=== PATIENT | female | born 1955 | race Caucasian/White ===

== ENCOUNTER 2016-08-02 18:16 | Inpatient (IN) | payer OTHER ==
[~2016-08-02] VITALS: Ht 152.4 cm; Wt 67.4 kg
[2016-08-02 18:53] LABS: ADD MIUA? YES; BILIRUBIN NEGATIVE; BLOOD LARGE; GLUCOSE (STRIP) NEGATIVE; KETONES NEGATIVE; LEUKOCYTES MODERATE; NITRITE NEGATIVE; PROTEIN (STRIP) 100; SPECIFIC GRAVITY 1.008 (1.000-1.030); UROBILINOGEN 0.2 MG/DL (0.2-1.0)
[2016-08-02 19:10] LABS: EOSINOPHIL (%) 6.1 % (0-5); EOSINOPHIL COUNT 0.8 K/uL (0-0.3); HEMATOCRIT 34.9 % (36.0-46.0); IMMATURE GRANULOCYTE (%) 0.3 % (0.0-0.7); INSTRUMENT ABS NEUTROPHIL CT 6.7 K/uL; MCH 30.6 PG (29.0-34.0); MCHC 33.8 G/DL (30.0-36.0); MCV 90.6 FL (83-99); MEAN PLAT.VOLUME 9.1 uM^3 (9.5-12.4); MONOCYTE (%) 13.9 % (3-12); MONOCYTE COUNT 1.7 K/uL (0-0.8); NEUTROPHIL (%) 54.9 % (45-76); NEUTROPHIL COUNT 6.7 K/uL (1.8-6.4); PLATELET COUNT 443 K/uL (156-360); RBC DIS.WIDTH-CV 11.9 % (11.8-14.6); RBC DIS.WIDTH-SD 39.5 % (39-53); RED BLOOD COUNT 3.85 M/uL (3.80-5.20); WHITE BLOOD COUNT 12.2 K/uL (4.1-10.2)
[2016-08-02 19:14] LABS: BACTERIA NONE SEEN /HPF; CASTS NONE SEEN /LPF; CRYSTALS NONE SEEN; EPITHELIAL CELLS RARE /HPF; MUCUS NONE SEEN /LPF; RED BLOOD CELLS TNTC /HPF (0-5); WHITE BLOOD CELLS 0-5 /HPF (0-5)
[2016-08-02 19:18] LABS: CHLORIDE 104 mEq/L (99-109); POTASSIUM 3.5 mEq/L (3.7-5.4); SODIUM 137 mEq/L (136-147)
[2016-08-02 19:20] LABS: GLUCOSE 210 mg/dL (70-99)
[2016-08-02 19:21] LABS: ANION GAP 12 MEQ/L (2-14)
[2016-08-02 19:22] LABS: TOTAL BILIRUBIN 0.3 mg/dL (0.0-1.0)
[2016-08-02 19:23] LABS: ALKALINE PHOSPHATASE 88 IU/L (3-129)
[2016-08-02 19:24] LABS: GFR ESTIMATE (CALCULATED) 54 mL/min/
[2016-08-02 19:25] LABS: UREA NITROGEN (BUN) 18 mg/dL (9-23)
[2016-08-02 19:27] LABS: LIPASE > 1055 U/L (1.0-51.0)
[2016-08-02] MEDS ORDERED: METFORMIN HCL1000 MG PO ×2 (19:48→19:49)
[2016-08-02] MEDS ORDERED: GEMFIBROZIL600 MG PO (19:49)
[2016-08-02] MEDS ORDERED: LO-DOSE ASPIRIN81 M2 PO (19:49)
[2016-08-02] MEDS ORDERED: LISINOPRIL10 MG PO (19:49)
[2016-08-02] MEDS ORDERED: HYDROCHLOROTH12.5 M3 PO (19:49)
[2016-08-02] MEDS ORDERED: CINNAMON500 MG PO (19:49)
[2016-08-02] MEDS ORDERED: PRAVASTATIN SOD80 MG PO (19:49)
[2016-08-02 23:41] VITALS: BP 119/77
[2016-08-03 00:20] LABS: POINT-OF-CARE METER ID UU13113725
[2016-08-03 06:49] LABS: EOSINOPHIL (%) 7.5 % (0-5); EOSINOPHIL COUNT 0.7 K/uL (0-0.3); HEMATOCRIT 33.7 % (36.0-46.0); IMMATURE GRANULOCYTE (%) 0.3 % (0.0-0.7); INSTRUMENT ABS NEUTROPHIL CT 4.8 K/uL; LYMPHOCYTE COUNT 3.1 K/uL (1.0-2.8); MCH 30.2 PG (29.0-34.0); MCHC 32.3 G/DL (30.0-36.0); MCV 93.4 FL (83-99); MEAN PLAT.VOLUME 9.6 uM^3 (9.5-12.4); MONOCYTE (%) 12.3 % (3-12); MONOCYTE COUNT 1.2 K/uL (0-0.8); NEUTROPHIL COUNT 4.8 K/uL (1.8-6.4); PLATELET COUNT 384 K/uL (156-360); RBC DIS.WIDTH-CV 11.9 % (11.8-14.6); RBC DIS.WIDTH-SD 41.1 % (39-53); RED BLOOD COUNT 3.61 M/uL (3.80-5.20); WHITE BLOOD COUNT 9.9 K/uL (4.1-10.2)
[2016-08-03 06:50] LABS: POINT-OF-CARE METER ID UU13113725
[2016-08-03 07:03] VITALS: BP 123/76
[2016-08-03 07:08] LABS: ALKALINE PHOSPHATASE 72 IU/L (3-129); AMYLASE 21 IU/L (1-118); ANION GAP 9 MEQ/L (2-14); CHLORIDE 103 MEQ/L (99-109); GFR ESTIMATE (CALCULATED) > 59 mL/min/; GLUCOSE 136 mg/dL (70-99); LIPASE 37 U/L (1.0-51.0); SAMPLE HEMOLYSIS CHECK 2; SAMPLE ICTERIC CHECK 0; SAMPLE LIPEMIA CHECK 0; SODIUM 138 MEQ/L (136-147); TOTAL BILIRUBIN 0.5 MG/DL (0.0-1.0); TRIGLYCERIDES 208 MG/DL (Normal: <150); UREA NITROGEN (BUN) 12 mg/dL (9-23)
[2016-08-03 07:10] LABS: POTASSIUM 4.5 MEQ/L (3.7-5.4)
[2016-08-03 11:32] LABS: POINT-OF-CARE METER ID UU13113725
[2016-08-03 16:49] LABS: POINT-OF-CARE METER ID UU13113675
[2016-08-03 17:08] VITALS: BP 158/83
[2016-08-03 18:24] LABS: POINT-OF-CARE METER ID UU13113725
[2016-08-03 22:45] VITALS: BP 138/70
[2016-08-04 00:19] LABS: POINT-OF-CARE METER ID UU13113725
[2016-08-04 05:59] LABS: POINT-OF-CARE METER ID UU13113725
[2016-08-04 06:53] VITALS: BP 131/78
[2016-08-04 09:14] LABS: HEMATOCRIT 31.3 % (36.0-46.0); MCH 31.1 PG (29.0-34.0); MCHC 33.5 G/DL (30.0-36.0); MCV 92.6 FL (83-99); MEAN PLAT.VOLUME 9.4 uM^3 (9.5-12.4); PLATELET COUNT 400 K/uL (156-360); RBC DIS.WIDTH-CV 11.7 % (11.8-14.6); RBC DIS.WIDTH-SD 39.8 % (39-53); RED BLOOD COUNT 3.38 M/uL (3.80-5.20)
[2016-08-04 09:17] LABS: WHITE BLOOD COUNT 14.2 K/uL (4.1-10.2)
[2016-08-04 09:27] LABS: ANION GAP 10 MEQ/L (2-14); CHLORIDE 103 MEQ/L (99-109); GFR ESTIMATE (CALCULATED) > 59 mL/min/; POTASSIUM 3.8 MEQ/L (3.7-5.4); SAMPLE HEMOLYSIS CHECK 0; SAMPLE ICTERIC CHECK 0; SAMPLE LIPEMIA CHECK 0; SODIUM 138 MEQ/L (136-147); UREA NITROGEN (BUN) 11 mg/dL (9-23)
[2016-08-04 09:28] LABS: GLUCOSE 207 mg/dL (70-99)
[2016-08-04 11:55] LABS: POINT-OF-CARE METER ID UU13113725
[2016-08-04] MEDS ORDERED: CIPRO500 MG PO (12:37)
== END 2016-08-04 14:00 | disposition home or self-care (01) | DRG 668 ==
LOC: EME 18:16 → EDOF 20:09 → 5EAST 22:51
PROVIDERS: Hospitalist; Physician Assistant; Physician Assistant Medical
DX: N13.2 Hydronephrosis with renal and ureteral calculous obstruction (principal); K85.30 Drug induced acute pancreatitis without necrosis or infection; I10 Essential (primary) hypertension; E78.5 Hyperlipidemia, unspecified; N17.9 Acute kidney failure, unspecified; R91.1 Solitary pulmonary nodule; E11.65 Type 2 diabetes mellitus with hyperglycemia
CPT/HCPCS: 71250; 74000; 74176; 76770; 80048; 80053; 81003; 82150; 82365 90; 82948; 83690; 84478; 85025; 85027; 99281; 99285; C1758; C1769; C1876; C9113; J0692; J1170; J1650; J1815; J2405; J3010; J7030; J7050; J7120

== ENCOUNTER → 2016-08-27 | Outpatient (CLI) | payer OTHER ==
[~2016-08-27] VITALS: Ht 152.4 cm; Wt 64.0 kg
[~2016-08-27] MED LIST: CINNAMON500 MG PO; CIPRO500 MG PO; GEMFIBROZIL600 MG PO; HYDROCHLOROTH12.5 M3 PO; LISINOPRIL10 MG PO; LO-DOSE ASPIRIN81 M2 PO; METFORMIN HCL1000 MG PO; PRAVASTATIN SOD80 MG PO
[2016-08-27 13:39] LABS: HEMATOCRIT 34.8 % (36.0-46.0); MCH 30.4 PG (29.0-34.0); MCV 92.1 FL (83-99); MEAN PLAT.VOLUME 9.6 uM^3 (9.5-12.4); PLATELET COUNT 396 K/uL (156-360); RBC DIS.WIDTH-CV 12.1 % (11.8-14.6); RBC DIS.WIDTH-SD 40.5 % (39-53); RED BLOOD COUNT 3.78 M/uL (3.80-5.20); WHITE BLOOD COUNT 9.3 K/uL (4.1-10.2)
[2016-08-27 13:46] LABS: POINT-OF-CARE METER ID UU13113694
[2016-08-27 14:00] LABS: INTER. NORMALIZED RATIO 1.1; PROTHROMBIN TIME 10.9 (9.2-11.2); PTT 25.2 (25-32)
[2016-08-27 16:58] LABS: POINT-OF-CARE METER ID UU13113675; POINT-OF-CARE USER ID 515036437
== END | disposition home or self-care (01) ==
LOC: AMB 12:53
PROVIDERS: Internal Medicine Pulmonary Disease
DX: R91.8 Other nonspecific abnormal finding of lung field (principal); I10 Essential (primary) hypertension; E11.9 Type 2 diabetes mellitus without complications; Z79.82 Long term (current) use of aspirin; Z79.4 Long term (current) use of insulin; M19.90 Unspecified osteoarthritis, unspecified site; R63.4 Abnormal weight loss
CPT/HCPCS: 71010; 76001; 82948; 85027; 85610; 85730; 88108; 88173; 88305; J1100; J2250; J2405; J2710; J3010

== ENCOUNTER → 2016-12-25 | Outpatient (CLI) | payer OTHER | END | disposition home or self-care (01) | LOC: CDC 12:52 | DX: R91.8 Other nonspecific abnormal finding of lung field (principal) | CPT/HCPCS: 93000 ==

== ENCOUNTER 2017-01-01 21:21 | Inpatient (IN) | payer OTHER ==
[~2017-01-01] VITALS: Ht 152.4 cm; Wt 68.4 kg
[2017-01-02] VITALS (7 sets, daily range): BP systolic 128–153; BP diastolic 81–104
[2017-01-02 07:01] LABS: EOSINOPHIL (%) 7.7 % (0-5); EOSINOPHIL COUNT 0.8 K/uL (0-0.3); HEMATOCRIT 39.6 % (36.0-46.0); IMMATURE GRANULOCYTE (%) 0.3 % (0.0-0.7); INSTRUMENT ABS NEUTROPHIL CT 4.8 K/uL; LYMPHOCYTE COUNT 3.2 K/uL (1.0-2.8); MCH 30.7 PG (29.0-34.0); MCHC 33.3 G/DL (30.0-36.0); MCV 92.1 FL (83-99); MEAN PLAT.VOLUME 9.3 uM^3 (9.5-12.4); MONOCYTE (%) 13.4 % (3-12); MONOCYTE COUNT 1.4 K/uL (0-0.8); NEUTROPHIL (%) 47.1 % (45-76); NEUTROPHIL COUNT 4.8 K/uL (1.8-6.4); PLATELET COUNT 393 K/uL (156-360); RBC DIS.WIDTH-CV 12.2 % (11.8-14.6); RBC DIS.WIDTH-SD 40.7 % (39-53); WHITE BLOOD COUNT 10.2 K/uL (4.1-10.2)
[2017-01-02 07:14] LABS: PROTHROMBIN TIME 10.5 SEC (10.2-12.9)
[2017-01-02 07:17] LABS: PTT 31.6 SEC (25-37)
[2017-01-02 07:22] LABS: ANION GAP 10 MEQ/L (2-14); CHLORIDE 102 MEQ/L (99-109); POTASSIUM 3.5 MEQ/L (3.7-5.4); SAMPLE HEMOLYSIS CHECK 0; SAMPLE ICTERIC CHECK 0; SAMPLE LIPEMIA CHECK 0; SODIUM 140 MEQ/L (136-147); TOTAL BILIRUBIN 0.4 MG/DL (0.0-1.0)
[2017-01-02 07:28] LABS: ALKALINE PHOSPHATASE 99 IU/L (3-129); GFR ESTIMATE (CALCULATED) > 59 mL/min/; GLUCOSE 160 mg/dL (70-99); UREA NITROGEN (BUN) 15 mg/dL (9-23)
[2017-01-02 14:24] LABS: POINT-OF-CARE METER ID UU13113675
[2017-01-02 16:24] LABS: POINT-OF-CARE METER ID UU14174217
[2017-01-02 16:44] LABS: METH RESISTANT S AUREUS PCR NEGATIVE (NEGATIVE)
[2017-01-02 16:45] LABS: PROBE CHECK PASS; SPECIMEN PROCESSING CONTROL PASS
[2017-01-02 21:35] LABS: POINT-OF-CARE METER ID UU14174217
[2017-01-03] VITALS: BP 142/85
[2017-01-03 04:00] VITALS: BP 134/73
[2017-01-03 07:12] LABS: HEMATOCRIT 33.1 % (36.0-46.0); MCH 30.9 PG (29.0-34.0); MCHC 33.2 G/DL (30.0-36.0); MEAN PLAT.VOLUME 9.6 uM^3 (9.5-12.4); PLATELET COUNT 391 K/uL (156-360); RBC DIS.WIDTH-CV 12.3 % (11.8-14.6); RBC DIS.WIDTH-SD 42.5 % (39-53); RED BLOOD COUNT 3.56 M/uL (3.80-5.20); WHITE BLOOD COUNT 17.2 K/uL (4.1-10.2)
[2017-01-03 07:27] LABS: ANION GAP 9 MEQ/L (2-14); CHLORIDE 102 MEQ/L (99-109); GFR ESTIMATE (CALCULATED) > 59 mL/min/; GLUCOSE 174 mg/dL (70-99); POTASSIUM 4.6 MEQ/L (3.7-5.4); SAMPLE HEMOLYSIS CHECK 1; SAMPLE ICTERIC CHECK 0; SAMPLE LIPEMIA CHECK 0; SODIUM 134 MEQ/L (136-147); UREA NITROGEN (BUN) 10 mg/dL (9-23)
[2017-01-03 08:00] VITALS: BP 139/80
[2017-01-03 11:50] LABS: POINT-OF-CARE METER ID UU13113748
[2017-01-03 12:00] VITALS: BP 126/73
[2017-01-03 16:00] VITALS: BP 124/72
[2017-01-03 17:50] LABS: POINT-OF-CARE METER ID UU14208751
[2017-01-03 20:00] VITALS: BP 136/75
[2017-01-03 21:21] LABS: POINT-OF-CARE METER ID UU13113731
[2017-01-04] VITALS: BP 142/85
[2017-01-04 04:00] VITALS: BP 134/74
[2017-01-04 05:55] LABS: HEMATOCRIT 30.1 % (36.0-46.0); MCH 31.5 PG (29.0-34.0); MCHC 33.2 G/DL (30.0-36.0); PLATELET COUNT 290 K/uL (156-360); RBC DIS.WIDTH-CV 12.3 % (11.8-14.6); RBC DIS.WIDTH-SD 42.7 % (39-53); RED BLOOD COUNT 3.17 M/uL (3.80-5.20); WHITE BLOOD COUNT 12.1 K/uL (4.1-10.2)
[2017-01-04 06:28] LABS: ANION GAP 5 MEQ/L (2-14); CHLORIDE 105 MEQ/L (99-109); GFR ESTIMATE (CALCULATED) > 59 mL/min/; GLUCOSE 141 mg/dL (70-99); POTASSIUM 4.2 MEQ/L (3.7-5.4); SAMPLE HEMOLYSIS CHECK 0; SAMPLE ICTERIC CHECK 0; SAMPLE LIPEMIA CHECK 0; SODIUM 140 MEQ/L (136-147); UREA NITROGEN (BUN) 12 mg/dL (9-23)
[2017-01-04 08:00] VITALS: BP 126/75
[2017-01-04 12:00] VITALS: BP 121/66
[2017-01-04 12:38] LABS: POINT-OF-CARE METER ID UU13113803
[2017-01-04 16:00] VITALS: BP 111/64
[2017-01-04 17:46] LABS: POINT-OF-CARE METER ID UU13113803
[2017-01-04 20:00] VITALS: BP 114/65
[2017-01-04 22:04] LABS: POINT-OF-CARE METER ID UU14174217
[2017-01-05] VITALS: BP 120/74
[2017-01-05 04:00] VITALS: BP 119/66
[2017-01-05 08:00] VITALS: BP 125/72
[2017-01-05 09:05] LABS: POINT-OF-CARE METER ID UU14174217
[2017-01-05 12:00] VITALS: BP 104/74
[2017-01-05 12:42] LABS: POINT-OF-CARE METER ID UU14174217
[2017-01-05 16:00] VITALS: BP 132/75
[2017-01-05 16:55] LABS: POINT-OF-CARE METER ID UU14174217
[2017-01-05 20:00] VITALS: BP 128/79
[2017-01-05 21:57] LABS: POINT-OF-CARE METER ID UU14174217
[2017-01-06] VITALS: BP 121/69
[2017-01-06 04:00] VITALS: BP 118/81
[2017-01-06 08:00] VITALS: BP 133/74
[2017-01-06 09:27] LABS: POINT-OF-CARE METER ID UU13113803; POINT-OF-CARE USER ID 612031313
[2017-01-06 12:00] VITALS: BP 114/67
[2017-01-06 13:17] LABS: POINT-OF-CARE METER ID UU13113803; POINT-OF-CARE USER ID 612031313
[2017-01-06 16:00] VITALS: BP 123/79
[2017-01-06 17:17] LABS: POINT-OF-CARE METER ID UU13113803; POINT-OF-CARE USER ID 612031313
[2017-01-06 20:00] VITALS: BP 137/83
[2017-01-06 21:35] LABS: POINT-OF-CARE METER ID UU13113803; POINT-OF-CARE USER ID 609231305
[2017-01-07] VITALS: BP 131/72
[2017-01-07 04:00] VITALS: BP 121/73
[2017-01-07 08:00] VITALS: BP 118/79
[2017-01-07 09:01] LABS: POINT-OF-CARE METER ID UU13113731; POINT-OF-CARE USER ID 612031313
[2017-01-07 12:00] VITALS: BP 105/68
[2017-01-07 13:11] LABS: POINT-OF-CARE METER ID UU13113731; POINT-OF-CARE USER ID 612031313
[2017-01-07 16:00] VITALS: BP 116/75
[2017-01-07 17:17] LABS: POINT-OF-CARE METER ID UU13113731; POINT-OF-CARE USER ID 612031313
[2017-01-07] MEDS ORDERED: DOCUSATE SODIU100 MG PO (18:21)
[2017-01-07] MEDS ORDERED: DIGOXIN125 MCG PO (18:21)
[2017-01-07] MEDS ORDERED: LOPRESSOR25 MG PO (18:21)
[2017-01-07] MEDS ORDERED: NORCO 5/3251 TABLET PO (18:21)
== END 2017-01-07 20:34 | disposition home or self-care (01) | DRG 165 ==
LOC: ENRESERV 21:21 → 2SOUTH 01-02 05:38 → ENRESERV 01-02 14:14 → 2SOUTH 01-02 14:45 → 4WEST 01-02 14:57 → 2SOUTH 01-02 15:04 → ENRESERV 01-03 17:13 → 4WEST 01-03 17:13 → CANRESERV 01-07 08:54 → ENRESERV 01-07 08:54 → CANRESERV 01-07 10:02 → ENRESERV 01-07 11:29 → CANRESERV 01-07 11:53 → 4WEST 01-07 20:34
PROVIDERS: Thoracic Surgery (Cardiothoracic Vascular Surgery)
PROC: 0BBF0ZX Excision of Right Lower Lung Lobe, Open Approach, Diagnostic (ICD-10-PCS; principal; 2017-01-02)
DX: D3A.090 Benign carcinoid tumor of the bronchus and lung (principal); E11.9 Type 2 diabetes mellitus without complications; I10 Essential (primary) hypertension; E78.00 Pure hypercholesterolemia, unspecified; Z90.710 Acquired absence of both cervix and uterus
CPT/HCPCS: 71010; 71020; 80048; 80053; 82948; 85025; 85027; 85610; 85730; 86850; 86900; 86901; 86920; 87070; 87075; 87102; 87116; 87205; 87206; 87641; 88300; 88305; 88307; 88331; 94010; 94640; 94640 76; 94760; 94799; 97530 GO; 97530 GP; 99202; J0131; J0690; J1100; J1160; J1170; J1644; J1815; J1885; J2250; J2405; J2710; J2795; J3010; J7050; J7120